=== PATIENT | male | born 1945 | race Caucasian/White ===

== ENCOUNTER 2024-03-25 12:57 | Emergency (ER) | payer MEDICARE ==
[~2024-03-25] VITALS: Ht 188 cm; Wt 91.8 kg
[2024-03-25 13:57] VITALS: TEMP 97
[2024-03-25 18:14] LABS: BASOPHILS % (AUTO) 0.2 % (0-1); EOSINOPHILS % (AUTO) 0.1 % (0-6); HEMATOCRIT 43.4 % (42.0-52.0); HEMOGLOBIN 14.6 g/dl (14.0-17.9); LYMPHOCYTES % (AUTO) 8.1 % (21-51); MEAN CORPUSCULAR HEMOGLOBIN 34.8 PG (27.0-31.0); MEAN CORPUSCULAR HGB CONC 33.6 g/dL (33.0-36.5); MEAN CORPUSCULAR VOLUME 103.4 FL (78-98); MEAN PLATELET VOLUME 7.9 FL (7.4-10.4); MONOCYTES # (AUTO) 0.8 X10'3 (0-0.9); NEUTROPHILS # (AUTO) 10.9 X10'3 (1.8-7.7); NEUTROPHILS % (AUTO) 85.6 % (42-75); PLATELET COUNT 276 X10'3 (140-440); RED CELL DISTRIBUTION WIDTH 13.9 % (11.5-14.5); WHITE BLOOD COUNT 12.7 X10'3 (4.5-11.0)
[2024-03-25 18:34] LABS: ALBUMIN 3.3 G/DL (3.4-5.0); ANION GAP 8 (8-16); BLOOD UREA NITROGEN 43 MG/DL (7-18); BUN/CREATININE RATIO 29.1 (10.0-20.0); CHLORIDE 101 MMOL/L (99-107); CREATININE 1.48 MG/DL (0.60-1.10); GLUCOSE 146 MG/DL (70-104); MAGNESIUM 2.1 MG/DL (1.5-2.4); POTASSIUM 3.8 MMOL/L (3.5-5.1); PRO BRAIN NATRIURETIC PEPTIDE 516 PG/ML (0-450); SODIUM 138 MMOL/L (135-145); TOTAL CARBON DIOXIDE 28.9 MMOL/L (24-32); eCRCL 47 ML/MIN; eGFR 46 ML/MIN
[2024-03-25] MEDS: normal saline 1000ML IV soln IVB ONE (21:13)
[2024-03-25] MEDS: acetaminophen 325mg tablet PO ONE (22:12)
[2024-03-25 22:35] LABS: BILIRUBIN,URINE SMALL (Neg); CLARITY,URINE CLEAR (Clear); COLOR,URINE YELLOW (Yellow); GLUCOSE, URINE NEGATIVE (Neg); KETONES,URINE NEGATIVE (Neg); LEUKOCYTE ESTERASE ,URINE NEGATIVE (Neg); OCCULT BLOOD,URINE TRACE-INTACT (Neg); PROTEIN,URINE 30 mg/dl (Neg); UROBILINOGEN,URINE 0.2 E.U/dL (0.2-1.0)
[2024-03-25 22:41] LABS: NITRITES, URINE NEGATIVE (Neg); UA COLLECTION TYPE URINAL
[2024-03-25 22:43] LABS: BACTERIA,URINE 1+ /HPF (Neg); MUCUS STRANDS MODERATE /LPF (Neg); SQUAMOUS EPITHELIAL CELL,UR MODERATE /LPF (FEW)
[2024-03-26] VITALS: O2SAT 95
[2024-03-26 01:00] VITALS: BP 122/78; PULSE 53; RESP 14
== END 2024-03-26 03:42 | disposition home or self-care (01) ==
LOC: ER 12:58
DX: R62.7 Adult failure to thrive (principal); Z20.822 Contact with and (suspected) exposure to COVID-19
CPT/HCPCS: 36415; 71045; 80048; 81001; 83735; 83880; 84145; 84484; 85025; 87088; 87502; 87503; 87811; 93005; 99285; J7030